=== PATIENT | male | born 1990 | race African-American/Black ===

== ENCOUNTER 2017-11-29 13:56 | Emergency (ER) | payer SELFPAY ==
[~2017-11-29] VITALS: Ht 177.8 cm; Wt 68.0 kg
[~2017-11-29 13:56] MED LIST: AMOXICILLIN875 MG PO; TRAMADOL50 MG PO
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
--- NOTE | 2017-11-29 18:07 | RADIOLOGY REPORT ---
EXAMINATION: LUMBOSACRAL SPINE 3 VIEWS CLINICAL INFORMATION: Pain after fall. COMPARISON: None. TECHNIQUE: AP, lateral, spot lateral views of the lumbosacral spine are provided. FINDINGS: There are no fractures. The lumbar vertebrae are in normal alignment. Disc heights and vertebral body heights are well-preserved. IMPRESSION: Unremarkable lumbosacral spine series.
[2017-11-29 18:15] VITALS: BP 118/70
[2017-11-29] MEDS ORDERED: IBUPROFEN800 M1 PO (18:38)
[2017-11-29] MEDS ORDERED: ROBAXIN-750750 M1 PO (18:38)
== END 2017-11-29 18:41 ==
LOC: ERH 13:56
DX: M54.5 Low back pain (principal); V89.2XXA Person injured in unspecified motor-vehicle accident, traffic, initial encounter
CPT/HCPCS: 72110